=== PATIENT | male | born 1950 ===

== ENCOUNTER → 2016-06-12 | Outpatient (CLI) | payer BC, OTHER ==
--- NOTE | 2016-06-12 15:31 | XR ---
EXAMINATION TYPE: XR chest 2V DATE OF EXAM: 06/12/2016 12:52 PM COMPARISON: Prior chest x-ray 09 November 2014 HISTORY: Asbestos exposure TECHNIQUE: Frontal and lateral views of the chest are obtained. FINDINGS: No interval change is evident. IMPRESSION: No acute cardiopulmonary process.
== END | disposition home or self-care (01) ==
LOC: CPPFTMAIN 11:54
PROVIDERS: ATTEND Family Medicine
DX: Z77.090 Contact with and (suspected) exposure to asbestos (principal)
CPT/HCPCS: 71020; 94060; 94726; 94729

== ENCOUNTER → 2016-06-18 | Outpatient (CLI) | payer BC ==
--- NOTE | 2016-06-18 09:43 | MR ---
EXAMINATION TYPE: MR knee RT wo con DATE OF EXAM: 06/18/2016 9:14 AM COMPARISON: NONE HISTORY: Rt knee pain x 3 weeks TECHNIQUE: Multiplanar, multisequence imaging of the knee is performed without IV contrast. FINDINGS: MEDIAL MENISCUS: Linear tear involving the posterior horn and body of the medial meniscus. LATERAL MENISCUS: Complex tear posterior horn lateral meniscus. CRUCIATE LIGAMENTS: The anterior and posterior cruciate ligaments are intact and unremarkable. COLLATERAL LIGAMENTS: The medial collateral ligament and lateral collateral ligament complex are inta ct and unremarkable. EXTENSOR MECHANISM: Visualized quadriceps and patellar tendons are intact. Signal on T2 sequences wit hin the mid patellar tendon suggestive of tendinitis no evidence of disruption or tear. EFFUSION: Small amount of fluid is seen in the suprapatellar bursa.. POPLITEAL CYST: No popliteal/angulo cyst. TRICOMPARTMENT SPACES: There is narrowing of the medial compartment of the knee joint and patellofemo ral joint. Hypertrophic spurs involving the patella are noted. Findings compatible with osteoarthriti s. Grade III chondromalacia involving the femoral medial and lateral articular cartilage BONE MARROW SIGNAL: No focal abnormal marrow signal is appreciated. Other: There is subcutaneous edema anteriorly with evidence of soft tissue varices. IMPRESSION: 1. Osteoarthritis with small suprapatellar joint effusion and chondromalacia as discussed above 2. Tears involving the posterior horn of the medial and lateral meniscus. 3. No evidence of ligamentous disruption. 4. There is signal seen within the patellar tendon on the T2 sagittal which is suggestive of patellar tendinosis with no evidence of complete tear or disruption correlate clinically.
== END | disposition home or self-care (01) ==
LOC: RADMRIMAIN 08:22
PROVIDERS: ATTEND Orthopaedic Surgery
DX: M17.11 Unilateral primary osteoarthritis, right knee (principal); M94.261 Chondromalacia, right knee; M23.221 Derangement of posterior horn of medial meniscus due to old tear or injury, right knee; M23.251 Derangement of posterior horn of lateral meniscus due to old tear or injury, right knee

== ENCOUNTER 2016-07-13 07:32 | Day surgery (SDC) | payer BC, OTHER ==
[2016-07-10 12:53] VITALS: BMI 40.6
--- NOTE | 2016-07-12 11:07 | HP ---
DATE OF ADMISSION: CHIEF COMPLAINT: Right knee pain. HISTORY OF PRESENT ILLNESS: The patient is a 65-year-old retired gentleman who presents with progressive right knee pain after recent twisting injury. He notes the lateral greater than medial pain along with giving way. He notes he is limping and is limited because of pain. He has tried conservative measures. PAST MEDICAL HISTORY: Significant for type 2 diabetes and hypertension along with prostate cancer. PAST SURGICAL HISTORY: Significant for prostatectomy. CURRENT MEDICATIONS: 1. Doxazosin. 2. Gabapentin. 3. Glimepiride. 4. Lisinopril. 5. Metformin. 6. Naprosyn. 7. Verapamil. He denies drug allergies. Family history is significant for cancer. SOCIAL HISTORY: Negative for current tobacco or alcohol use. Sixteen-point review of systems otherwise reviewed and is noncontributory. On examination, the patient is approximately 6 feet tall, 285 pounds of endomorphic habitus. HEENT exam is nonfocal. Neck is supple. He has painless passive motion of the right hip. Straight leg raise is negative. Active motion of the right knee -6 to 105 degrees of flexion. He has a moderate effusion. He is tender about the lateral joint line. Collaterals are stable, Radha's negative, Daylin's elicits lateral pain. His distal neurovascular exam appears to be intact in the right lower extremity. MRI report for the right knee from 06/18/2016 shows a posterior medial and lateral meniscal tears. IMPRESSION: 1. Right knee internal derangement with symptomatic medial and lateral meniscal tears. 2. Right knee moderate medial compartment osteoarthrosis. 3. Increased body mass index. RECOMMENDATIONS: I talked to the patient at length regarding his treatment options. At this point he is having significant pain and mechanical symptoms despite conservative measures. After thorough discussion, he opts to proceed with surgery. We will plan to proceed with arthroscopic evaluation and possible partial medial and lateral meniscectomies. We will likely perform that as an outpatient procedure.
[~2016-07-13 07:32] MED LIST: DEXAMETHASONE SOD PHOSPHATE 10 MG/ML 1 ML VIAL IV ONE; LACTATED RINGERS 1,000 ML IV SCH; ONDANSETRON 4 MG/2 ML VIAL IVP ONE; ceFAZolin 3 GM in SODIUM CHLORIDE 0.9% 100 ML IVPB ONE
[2016-07-13 08:27] LABS: Glucose,Whole Blood 171 mg/dL (75-99)
[2016-07-13] MEDS ORDERED: LIDOCAINE 1% 20 ML VIAL (10MG/ML) FOR IV START INTRADERMA ONE (08:29)
[2016-07-13] MEDS ORDERED: LIDOCAINE 1% INJ 10MG/ML (20 ML MDV) ONE (09:03)
[2016-07-13] MEDS ORDERED: PROPOFOL 10 MG/ML 20 ML VIAL IV ONE (09:03)
[2016-07-13] MEDS ORDERED: fentaNYL (PF) 50 MCG/ML 2 ML AMP ONE (09:03)
[2016-07-13] MEDS ORDERED: MIDAZOLAM 2 MG/2 ML VIAL ONE (09:03)
[2016-07-13] MEDS ORDERED: EPINEPHrine (PF) 1 ML in SODIUM CHLORIDE 0.9% IRRIGATIO 3,000 ML IRRIGATION ONE ×4 (09:26)
--- NOTE | 2016-07-13 10:03 | P.OP ---
Date of Procedure: 07/13/16 Preoperative Diagnosis: Right knee internal derangement Postoperative Diagnosis: Right knee posterior medial meniscal tear/grade 3 chondral injury distal lateral portion medial femoral condyle/anterior lateral meniscal tear/ patellofemoral plica Procedure(s) Performed: Right knee arthroscopic partial medial meniscectomy/partial lateral meniscectomy /medial femoral chondrectomy/plica resection Implants: Anesthesia: GETA Surgeon: Dax Pan Estimated Blood Loss (ml): 10 Pathology: none sent Condition: stable Disposition: PACU Indications for Procedure: The patient's a 65-year-old male who presents with progressive right knee pain and mechanical symptoms after a recent twisting injury despite conservative measures. A discussion of the risks and benefits of continued conservative treatment versus operative intervention was made with patient. He opted to proceed with surgery. Operative risks to include infection, neurovascular injury, development of blood clots, possible incomplete resolution system, possible worsening symptoms and need for subsequent procedures was discussed. Informed consent was obtained. Operative Findings: As below Description of Procedure: The patient was brought to the operating room, and after induction of general anesthesia examined the right knee. Collaterals were stable, Radha was negative, and posterior drawer was negative. The right lower extremity was prepped and draped in normal fashion. A superior lateral portal was made through a 3 mm skin incision superior and lateral to the patella. This was used for outflow. A moderate effusion was encountered. A lateral portal was made through a 5 mm vertical skin incision lateral to the patella tendon above the joint. Diagnostic arthroscopy was performed. A medial portal was made through a similar incision medial to the patella tendon above the joint line. On inspection of the medial compartment, he was noted to have a longitudinal tear involving the posterior horn of the medial meniscus in the white-white junction. This was debrided back to stable base with straight baskets and a motorized shaver. A grade 3 chondral injury involving the distal lateral portion of the medial femoral condyle was noted. There is a loose chondral fragment debrided back to stable base with a motorized shaver. On inspection the notch, the anterior cruciate ligament appeared to be intact. On inspection lateral compartment there were diffuse degenerative changes along with a complex tear involving the anterior horn of the lateral meniscus. This was debrided back to stable base with a motorized shaver. On inspection patellofemoral articulation, a medial patellofemoral plica was present impinging on the medial femoral condyle. This was debrided with motorized shaver. There was chondral fibrillation however no loose chondral fragments the patellofemoral articulation. The gutters were clear debris. The knee was then thoroughly irrigated. The portals were closed with Steri-Strips. A sterile dressing was applied in addition to a compression stocking. The patient was awoken from general anesthesia and transferred to the recovery room in good condition. Blood loss was estimated at 10 mL. No complications were incurred.
[2016-07-13 10:08] VITALS: TEMP 97.2
[2016-07-13] MEDS: HYDROmorphone 1 MG/ML 1 ML SYRINGE IVP PRN ×2 (10:09→10:19)
[2016-07-13 10:14] LABS: Glucose,Whole Blood 169 mg/dL (75-99)
[2016-07-13 10:46] VITALS: RESP 16
[2016-07-13 11:54] VITALS: BP 141/74; PULSE 67
== END 2016-07-13 12:24 | disposition home or self-care (01) ==
LOC: OR 07:32
PROVIDERS: ATTEND Orthopaedic Surgery
DX: S83.281A Other tear of lateral meniscus, current injury, right knee, initial encounter (principal); S83.241A Other tear of medial meniscus, current injury, right knee, initial encounter; S83.31XA Tear of articular cartilage of right knee, current, initial encounter; M67.51 Plica syndrome, right knee; M17.11 Unilateral primary osteoarthritis, right knee; I10 Essential (primary) hypertension; E11.9 Type 2 diabetes mellitus without complications; X50.1XXA Overexertion from prolonged static or awkward postures, initial encounter; Z79.899 Other long term (current) drug therapy; Z85.46 Personal history of malignant neoplasm of prostate; Z79.84 Long term (current) use of oral hypoglycemic drugs; Z79.1 Long term (current) use of non-steroidal anti-inflammatories (NSAID)
CPT/HCPCS: 29880; J2250; J1100; J0690; J2405; J0171; J2001; J3010; J1170; J2704

== ENCOUNTER → 2017-03-25 | Outpatient (CLI) | payer MEDICARE | END | disposition home or self-care (01) | LOC: LABWHC1 14:17 | PROVIDERS: ATTEND Radiology Radiation Oncology | DX: C61 Malignant neoplasm of prostate (principal) | CPT/HCPCS: 36415; 84153 ==

== ENCOUNTER → 2017-04-10 | Outpatient (CLI) | payer MEDICARE ==
--- NOTE | 2017-04-10 14:35 | NM ---
EXAMINATION TYPE: NM bone scan whole body DATE OF EXAM: 04/10/2017 COMPARISON: Prior exam 11/09/2014 bone scan HISTORY: Prostate cancer, C 62 Delayed whole-body scanning was performed following the injection of 26.1 mCi Tc 99m MDP. Images acq uired 3 hours post injection. FINDINGS: Soft tissue uptake is normal. Uptake again noted within the knees, the, hips, shoulders, sternoclavic ular joints, hands, and spine is likely due to degenerative changes. IMPRESSION: Stable exam, metastatic disease is not evident.
== END | disposition home or self-care (01) ==
LOC: RADNMMAIN 09:14
PROVIDERS: ATTEND Radiology Radiation Oncology
DX: C61 Malignant neoplasm of prostate (principal)
CPT/HCPCS: 78306; A9503

== ENCOUNTER → 2017-05-17 | Outpatient (CLI) | payer MEDICARE ==
--- NOTE | 2017-05-17 09:47 | XR ---
EXAMINATION TYPE: XR chest 2V DATE OF EXAM: 05/17/2017 COMPARISON: 06/12/2016 TECHNIQUE: PA and lateral views submitted. HISTORY: Asbestosis exposure FINDINGS: The lungs are clear and there is no pneumothorax, pleural effusion, or focal pneumonia. Hypertrophi c and degenerative change of the spine. Arthropathy of the shoulders. No overt failure. Atherosclerot ic change aorta. IMPRESSION: 1. No acute process.
== END ==
LOC: RADXRMAIN 09:26
PROVIDERS: ATTEND Family Medicine
DX: Z77.090 Contact with and (suspected) exposure to asbestos (principal)
CPT/HCPCS: 71046

== ENCOUNTER → 2017-05-28 | Outpatient (CLI) | payer OTHER | END | disposition home or self-care (01) | LOC: CPPFTMAIN 10:00 | PROVIDERS: ATTEND Family Medicine | DX: R94.2 Abnormal results of pulmonary function studies (principal); Z77.090 Contact with and (suspected) exposure to asbestos | CPT/HCPCS: 94060; 94726; 94729 ==

== ENCOUNTER → 2017-06-03 | Outpatient (CLI) | payer MEDICARE ==
--- NOTE | 2017-06-03 11:48 | MR ---
EXAMINATION TYPE: MR knee LT wo con DATE OF EXAM: 06/03/2017 COMPARISON: NONE HISTORY: Pain in left knee per order. Additional symptoms of swelling for 3 months per patient. TECHNIQUE: Multiplanar, multisequence images of the knee is performed without IV contrast. FINDINGS: MEDIAL MENISCUS: Anterior horn shows increased globular signal does not distinctly extend to articula r surface. Posterior horn is truncated with abnormal signal. LATERAL MENISCUS: Horizontal increased signal does not extend to articular surface through anterior p osterior horns and central body. CRUCIATE LIGAMENTS: The posterior cruciate ligaments is intact. Anterior cruciate ligament shows suzy ed thickening and increased signal particularly proximal to mid aspects, some fibers remain intact. COLLATERAL LIGAMENTS: The medial collateral ligament and lateral collateral ligament complex are inta ct. Mild fluid signal surrounds medial collateral ligament. EXTENSOR MECHANISM: Visualized quadriceps and patellar tendons are intact. Increased signal and thick ening proximal patellar pole is identified. EFFUSION: There is small size suprapatellar joint effusion. POPLITEAL CYST: No popliteal/angulo cyst. TRICOMPARTMENT SPACES: Moderate to advanced joint space loss medial tibiofemoral and patellofemoral c ompartment is seen. There is moderate to advanced spurring patellofemoral compartment. There is mild to moderate spurring lateral and medial tibiofemoral compartments. CARTILAGE: There is chondromalacia patella with thinning of articular cartilage along posterior russell lar pole. Near full-thickness loss is present. There is full-thickness cartilaginous loss medial tibi ofemoral compartment with near [id number] formation, some reactive osseous changes seen centrally s een best coronal image 21 with areas of low T1 signal noted confirmed on sagittal image 27. BONE MARROW SIGNAL: No focal abnormal marrow signal is appreciated. OTHER: Prominent varicose veins are seen. IMPRESSION: 1. Background moderate to advanced tricompartment degenerative changes most prominent medial tibiofem oral compartment where there is advanced joint space and significant full-thickness cartilaginous los s noted. 2. Complex full-thickness tear posterior horn of medial meniscus may be on basis of degenerative oliveros ge. 3. Degenerative intrasubstance tearing anterior horn of medial meniscus felt present. 4. Markedly abnormal anterior cruciate ligament with heterogeneous increased signal, few normal low s ignal fibers are intact. 5. Mild MCL sprain. 6. Moderate proximal patellar tendinosis.
== END ==
LOC: RADMRIMAIN 09:02
PROVIDERS: ATTEND Family Medicine
DX: M17.12 Unilateral primary osteoarthritis, left knee (principal); S83.242A Other tear of medial meniscus, current injury, left knee, initial encounter; S83.412A Sprain of medial collateral ligament of left knee, initial encounter

== ENCOUNTER → 2017-06-19 | Outpatient (CLI) | payer MEDICARE | END | disposition home or self-care (01) | LOC: LABWHC1 08:45 | PROVIDERS: ATTEND Radiology Radiation Oncology | DX: C61 Malignant neoplasm of prostate (principal) | CPT/HCPCS: 36415; 84153 ==

== ENCOUNTER → 2018-06-09 | Outpatient (CLI) | payer MEDICARE ==
[2018-06-09 11:31] LABS: Appearance,Urine Clear (Clear); Bilirubin,Urine Negative (Negative); Blood,Urine Negative (Negative); Color,Urine Yellow; Glucose,Urine (UA) Negative (Negative); Ketones,Urine Negative (Negative); Leukocyte Esterase,Urine Negative (Negative); Nitrite,Urine Negative (Negative); PH, Urine 5.5 (5.0-8.0); Protein,Urine Trace (Negative); Specific Gravity,Urine 1.027 (1.001-1.035)
== END ==
LOC: LABWHC1 10:34
PROVIDERS: ATTEND Radiology Radiation Oncology
DX: C61 Malignant neoplasm of prostate (principal); R97.21 Rising PSA following treatment for malignant neoplasm of prostate; Z92.3 Personal history of irradiation; Z00.6 Encounter for examination for normal comparison and control in clinical research program; Z90.79 Acquired absence of other genital organ(s)
CPT/HCPCS: 81003; 87086

== ENCOUNTER 2018-06-23 08:31 | Day surgery (SDC) | payer MEDICARE ==
[2018-06-20 09:02] VITALS: BMI 42.0
[~2018-06-23 08:31] MED LIST changes: -DEXAMETHASONE SOD PHOSPHATE 10 MG/ML 1 ML VIAL IV ONE; +LIDOCAINE 1% 20 ML VIAL (10MG/ML) FOR IV START INTRADERMA PRN; -ONDANSETRON 4 MG/2 ML VIAL IVP ONE; -ceFAZolin 3 GM in SODIUM CHLORIDE 0.9% 100 ML IVPB ONE
[2018-06-23 09:15] VITALS: RESP 16; TEMP 97.4
[2018-06-23 09:32] LABS: Glucose,Whole Blood 147 mg/dL (75-99)
[2018-06-23] MEDS ORDERED: PROPOFOL 10 MG/ML 20 ML VIAL IV ONE (10:04)
[2018-06-23] MEDS ORDERED: SODIUM CHLORIDE 0.9% 500 ML IV ONE (10:41)
[2018-06-23 10:49] VITALS: BP 146/79; PULSE 67
--- NOTE | 2018-06-23 11:02 | P.PCN ---
Date of Procedure: 06/23/18 Procedure(s) Performed: Procedure: Colonoscopy and argon plasma coagulation for radiation proctitis. Preoperative diagnosis: Rectal bleeding. Postoperative diagnosis: 1. Sigmoid diverticulosis with no evidence of acute diverticulitis or strictures. 2. Telangiectatic vessels in the rectum consistent with radiation proctitis with evidence of spontaneous bleeding at the time of this exam. 3. Argon plasma coagulation was used with good hemostasis. Preparation: HalfLytely prep. Sedation: Was provided by anesthesia. Brief clinical history: The patient is a 67-year-old male who is scheduled for this evaluation because of 3 episodes of rectal bleeding within the last 3 weeks or so. No change in bowel habits, abdominal pain or rectal pains. His last colonoscopy was in 2009. The patient had prostate cancer for which he underwent radiation last year. Procedure: With the patient on his left lateral decubitus position and after informed consent and adequate sedation, the perianal area was inspected and it did not show any fissures or fistulas. There were no masses felt on digital rectal examination. The Olympus CFH 190L video colonoscope was then inserted in the rectum in the usual fashion and advanced to the cecum. Unfortunately, the preparation was less than ideal and I had to spend some time cleansing the bowel with incomplete cleansing. There was no obvious polyps or tumors. Several diverticular orifices were seen scattered in the sigmoid with no evidence of acute diverticulitis or strictures. In the distal rectum there were multiple telangiectatic vessels consistent with radiation proctitis with one spontaneously bleeding area that was noted upon first inserting the endoscope. Elsewhere, the mucosa appeared healthy. I used argon plasma coagulation energy 60 W. With a straight tip catheter, the involved area was coagulated with good hemostasis. The patient tolerated the procedure well. Plan: The patient was reassured. He will follow up with you as planned and I will be happy to see in the office if his symptoms.
== END 2018-06-23 11:27 | disposition home or self-care (01) ==
LOC: ORWHC2ENDO 08:31
DX: K57.30 Diverticulosis of large intestine without perforation or abscess without bleeding (principal); K62.7 Radiation proctitis; Z85.46 Personal history of malignant neoplasm of prostate; E11.9 Type 2 diabetes mellitus without complications; I10 Essential (primary) hypertension; E78.5 Hyperlipidemia, unspecified; M19.90 Unspecified osteoarthritis, unspecified site; Z79.84 Long term (current) use of oral hypoglycemic drugs; Z79.82 Long term (current) use of aspirin; Z79.899 Other long term (current) drug therapy
CPT/HCPCS: 45382; J2704

== ENCOUNTER 2021-01-21 09:37 | Emergency (ER) | payer MEDICARE ==
[2021-01-21] MEDS ORDERED: IBUPROFEN 600 MG TAB PO STA (11:26)
--- NOTE | 2021-01-21 12:02 | ED ---
General Adult HPI - General Chief complaint: Fever Stated complaint: Covid exposure/symptoms Time Seen by Provider: 01/21/21 11:05 Source: patient, RN notes reviewed Mode of arrival: ambulatory Limitations: no limitations - History of Present Illness Initial comments: 70-year-old male presents to the emergency Department with complaints of cough and fever, onset yesterday. Patient states his is Covid positive and he has been providing her care while attempting to maintain distance. Patient states he attempted to treat his symptoms at home by taking OTC Coricidin last night, but has had nothing today. Reports increased fatigue; states appetite is unchanged. He has mild shortness of breath with activity that he attributes to his cough. Patient states he is not vaccinated, but is interested in receiving the monoclonal antibody infusion. Patient denies dizziness, headache, chest pain, abdominal pain, nausea, vomiting, diarrhea, or dysuria. - Related Data Home Medications Medication Instructions Recorded Confirmed Aspirin 162 mg PO DAILY 07/10/16 01/21/21 Doxazosin [Cardura] 2 mg PO HS 07/10/16 01/21/21 Glimepiride [Amaryl] 4 mg PO DAILY 07/10/16 01/21/21 Lisinopril-Hctz 20-25 mg 1 tab PO DAILY 07/10/16 01/21/21 [Zestoretic 20-25] Naproxen [Naprosyn] 500 mg PO BID 07/10/16 01/21/21 Red Yeast Rice 1,200 mg PO HS 07/10/16 01/21/21 metFORMIN HCL [Metformin HCl] 1,000 mg PO BID 07/10/16 01/21/21 Loratadine 10 mg PO DAILY 06/20/18 01/21/21 Multivitamin-No Iron 1 tab PO DAILY 01/21/21 01/21/21 Pioglitazone [Actos] 45 mg PO DAILY 01/21/21 01/21/21 Verapamil HCl [Verapamil Sr] 360 mg PO DAILY 01/21/21 01/21/21 Allergies Allergy/AdvReac Type Severity Reaction Status Date / Time No Known Allergies Allergy Verified 01/21/21 13:47 Review of Systems ROS Statement: Those systems with pertinent positive or pertinent negative responses have been documented in the HPI. ROS Other: All systems not noted in ROS Statement are negative. Past Medical History Past Medical History: Cancer, Diabetes Mellitus, Hyperlipidemia, Hypertension, Osteoarthritis (OA), Prostate Disorder Additional Past Medical History / Comment(s): SOME RECTAL BLEEDING,PROSTATE CANCER WITH RADIATION History of Any Multi-Drug Resistant Organisms: None Reported Past Surgical History: Tonsillectomy Additional Past Surgical History / Comment(s): RIGHT AND LEFT GREAT TOE , PROSTATE SURGERY, RIGHT AND LEFT ARTHROSCOPIC KNEE Past Anesthesia/Blood Transfusion Reactions: Previous Problems w/ Anesthesia Additional Past Anesthesia/Blood Transfusion Reaction / Comment(s): PATIENT STATES WOKE UP DURING HIS TOE SURGERY " Past Psychological History: No Psychological Hx Reported Smoking Status: Never smoker Past Alcohol Use History: Rare Past Drug Use History: None Reported - Past Family History Father Family Medical History: Cancer Additional Family Medical History / Comment(s): LUNG AND BRAIN CANCER General Exam Limitations: no limitations (Well-developed, well-nourished male in no acute distress. Initial temperature 99.7, pulse 87, respirations 18, blood pressure 216/88, pulse ox 94% on room air.) General appearance: alert, in no apparent distress Eye exam: Present: normal appearance, PERRL, EOMI. Absent: scleral icterus, conjunctival injection, periorbital swelling ENT exam: Present: normal exam, normal oropharynx, mucous membranes moist Respiratory exam: Present: normal lung sounds bilaterally, other (Dry cough). Absent: respiratory distress, wheezes, rales, rhonchi, stridor Cardiovascular Exam: Present: regular rate, normal rhythm, normal heart sounds. Absent: systolic murmur, diastolic murmur, rubs, gallop, clicks GI/Abdominal exam: Present: soft, normal bowel sounds. Absent: distended, tenderness, guarding, rebound, rigid Neurological exam: Present: alert, oriented X3, CN II-XII intact Psychiatric exam: Present: normal affect, normal mood Skin exam: Present: warm, dry, intact, normal color. Absent: rash Course Vital Signs 01/21/21 01/21/21 01/21/21 09:38 12:31 13:04 Temperature 99.7 F H 100.2 F H Pulse Rate 87 82 82 Respiratory 18 16 16 Rate Blood Pressure 216/88 164/72 174/77 O2 Sat by Pulse 94 L 92 L 94 L Oximetry 01/21/21 14:05 Temperature 98.7 F Pulse Rate 80 Respiratory 16 Rate Blood Pressure 161/71 O2 Sat by Pulse 92 L Oximetry - Reevaluation(s) Reevaluation #1: 01/21/21 13:00 Discussed elevated blood pressure; states he is due for his morning medications and will take them when he gets home. 01/21/21 13:52 Tolerated antibiotic infusion without adverse effect. Medical Decision Making - Medical Decision Making This is a 70-year-old male with past medical history of diabetes and hypertension who presents to the emergency department for evaluation of fever and cough. Patient had direct contact with COVID-19 positive individual. Upon exam, patient is well-appearing with no increased work of breathing or evidence of distress. He is febrile, but not tachycardic nor tachypneic. SpO2 93-96% on room air. Patient did test positive for Covid. Discussed option of monoclonal antibody infusion and patient was agreeable. He received infusion without any adverse side effect. Patient will be discharged home to follow up with his primary care provider for recheck. Instructed to alternate Tylenol and Motrin as needed for fever. Return parameters were discussed in detail. Patient verbalizes understanding and agrees with this plan. This patient's care was discussed my attending . - Lab Data Lab Results 01/21/21 Range/Units 09:44 Coronavirus (PCR) Detected A (Not Detectd) - Radiology Data Radiology results: report reviewed, image reviewed Two-view chest x-ray was obtained. Report was reviewed in its entirety. Impression per Dr. Wilson is possible basilar atelectasis, correlate to exclude pneumonia, follow-up is indicated. Disposition Clinical Impression: COVID-19, Fever Disposition: HOME SELF-CARE Condition: Stable Instructions (If sedation given, give patient instructions): Coronavirus Disease 2019 (COVID-19), Fever in Adults (ED) Additional Instructions: Treat fever with Tylenol or Motrin. Continue taking your regular home medications as scheduled. Follow-up with your primary care provider for a recheck via telephone. Return to the emergency department with new, worsening, or concerning symptoms. Is patient prescribed a controlled substance at d/c from ED?: No Referrals: Pascale Kaminski DO [Primary Care Provider] - 1-2 days Time of Disposition: 14:17
--- NOTE | 2021-01-21 12:19 | XR ---
EXAMINATION TYPE: XR chest 2V DATE OF EXAM: 01/21/2021 COMPARISON: Chest x-ray 05/17/2017 HISTORY: Cough, Covid TECHNIQUE: Frontal and lateral views of the chest are obtained. FINDINGS: There is no pleural effusion or pneumothorax seen. Suspect some increased attenuation at the posterior costophrenic angle The cardiac silhouette size is within normal limits. The osseous s tructures are intact, there is thoracic spondylosis. IMPRESSION: Possible basilar atelectasis, correlate to exclude pneumonia, follow-up as indicated
[2021-01-21] MEDS ORDERED: SODIUM CHLORIDE 0.9% 50 ML IVPB ONE (12:30)
[2021-01-21] MEDS ORDERED: BAMLANIVIMAB (EUA) 700 MG, ETESEVIMAB (EUA) 1,400 MG in SODIUM CHLORIDE 0.9% 50 ML IVPB ONE (12:30)
[2021-01-21 12:33] VITALS: RESP 16
[2021-01-21 14:07] VITALS: BP 161/71; PULSE 80; TEMP 98.7
== END 2021-01-21 14:45 | disposition home or self-care (01) ==
LOC: EC 09:37
DX: U07.1 COVID-19 (principal); E11.9 Type 2 diabetes mellitus without complications; I10 Essential (primary) hypertension; E78.5 Hyperlipidemia, unspecified; M19.90 Unspecified osteoarthritis, unspecified site; Z79.84 Long term (current) use of oral hypoglycemic drugs; Z79.82 Long term (current) use of aspirin; Z79.1 Long term (current) use of non-steroidal anti-inflammatories (NSAID); Z79.899 Other long term (current) drug therapy
CPT/HCPCS: 87635; 71046; 99284; J3490

== ENCOUNTER 2021-01-23 12:51 | Inpatient (IN) | payer MEDICARE ==
[2021-01-23] MEDS ORDERED: ALBUTEROL HFA INHALER INHALATION STA (13:35)
--- NOTE | 2021-01-23 13:37 | ED ---
SOB HPI - General Chief Complaint: Shortness of Breath Stated Complaint: weakness Time Seen by Provider: 01/23/21 13:14 Source: patient, RN notes reviewed Mode of arrival: wheelchair Limitations: no limitations - History of Present Illness Initial Comments: Is a 70-year-old male with no prior history of lung disease who started developing symptoms 4 days ago of cough fevers chills sweats. 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 He was seen today and found to be hypoxemic short of breath though he states his temperature was better today. No nausea no vomiting no diarrhea no chest pain no other current complaints modifying factors. He is found to have a pulse ox of the 70s. MD Complaint: shortness of breath - Related Data Home Medications Medication Instructions Recorded Confirmed Aspirin 162 mg PO DAILY 07/10/16 01/21/21 Doxazosin [Cardura] 2 mg PO HS 07/10/16 01/21/21 Glimepiride [Amaryl] 4 mg PO DAILY 07/10/16 01/21/21 Lisinopril-Hctz 20-25 mg 1 tab PO DAILY 07/10/16 01/21/21 [Zestoretic 20-25] Naproxen [Naprosyn] 500 mg PO BID 07/10/16 01/21/21 Red Yeast Rice 1,200 mg PO HS 07/10/16 01/21/21 metFORMIN HCL [Metformin HCl] 1,000 mg PO BID 07/10/16 01/21/21 Loratadine 10 mg PO DAILY 06/20/18 01/21/21 Multivitamin-No Iron 1 tab PO DAILY 01/21/21 01/21/21 Pioglitazone [Actos] 45 mg PO DAILY 01/21/21 01/21/21 Verapamil HCl [Verapamil Sr] 360 mg PO DAILY 01/21/21 01/21/21 Allergies Allergy/AdvReac Type Severity Reaction Status Date / Time No Known Allergies Allergy Verified 01/23/21 13:06 Review of Systems ROS Statement: Those systems with pertinent positive or pertinent negative responses have been documented in the HPI. ROS Other: All systems not noted in ROS Statement are negative. Past Medical History Past Medical History: Cancer, Diabetes Mellitus, Hyperlipidemia, Hypertension, Osteoarthritis (OA), Prostate Disorder Additional Past Medical History / Comment(s): SOME RECTAL BLEEDING,PROSTATE CANCER WITH RADIATION History of Any Multi-Drug Resistant Organisms: None Reported Past Surgical History: Tonsillectomy Additional Past Surgical History / Comment(s): RIGHT AND LEFT GREAT TOE , PROSTATE SURGERY, RIGHT AND LEFT ARTHROSCOPIC KNEE Past Anesthesia/Blood Transfusion Reactions: Previous Problems w/ Anesthesia Additional Past Anesthesia/Blood Transfusion Reaction / Comment(s): PATIENT STATES WOKE UP DURING HIS TOE SURGERY " Past Psychological History: No Psychological Hx Reported Smoking Status: Never smoker Past Alcohol Use History: Rare Past Drug Use History: None Reported - Past Family History Father Family Medical History: Cancer Additional Family Medical History / Comment(s): LUNG AND BRAIN CANCER General Exam - General Exam Comments Initial Comments: This is a well-developed well-nourished awake alert oriented times 3 male Limitations: no limitations General appearance: alert, anxious Head exam: Present: atraumatic, normocephalic, normal inspection Eye exam: Present: normal appearance, PERRL, EOMI. Absent: scleral icterus, conjunctival injection, periorbital swelling ENT exam: Present: normal exam, mucous membranes moist Neck exam: Present: normal inspection, full ROM, other. Absent: tenderness, meningismus, lymphadenopathy Respiratory exam: Present: rhonchi, decreased breath sounds (No stridor JVD or bruits). Absent: respiratory distress, wheezes, rales, stridor Cardiovascular Exam: Present: regular rate, normal rhythm, normal heart sounds. Absent: systolic murmur, diastolic murmur, rubs, gallop, clicks GI/Abdominal exam: Present: soft, normal bowel sounds. Absent: distended, tenderness, guarding, rebound, rigid Extremities exam: Present: normal inspection, full ROM, normal capillary refill. Absent: tenderness, pedal edema, joint swelling, calf tenderness Back exam: Present: normal inspection Neurological exam: Present: alert, oriented X3, CN II-XII intact Psychiatric exam: Present: normal affect, normal mood Skin exam: Present: warm, dry, intact, normal color. Absent: rash Course Vital Signs 01/23/21 01/23/21 01/23/21 13:02 13:35 13:57 Temperature 99.4 F Pulse Rate 70 58 L Respiratory 18 28 H 18 Rate Blood Pressure 147/69 137/71 O2 Sat by Pulse 85 L 98 Oximetry 01/23/21 01/23/21 14:05 15:00 Temperature Pulse Rate 58 L Respiratory 18 Rate Blood Pressure 146/65 O2 Sat by Pulse 97 95 Oximetry - Reevaluation(s) Reevaluation #1: 01/23/21 15:57 Patient has improvement after the treatment rendered. Reevaluation #2: 01/23/21 16:06 Dr. Melo did come to see the patient in the emergency department. Medical Decision Making - Medical Decision Making I did discuss findings the patient with Dr. kofi tinajero he does have evidence of hypokalemia hypomagnesemia is 5 taking magnesium supplements. Evidence of lactic acidosis likely a combination of the viral syndrome and dehydration. Patient will be admitted for inpatient evaluation and treatment - Lab Data Result diagrams: 01/23/21 13:35 01/23/21 13:35 Lab Results 01/23/21 01/23/21 01/23/21 Range/Units 13:35 13:35 13:35 WBC 4.1 (3.8-10.6) k/uL RBC 4.09 L (4.30-5.90) m/uL Hgb 12.9 L (13.0-17.5) gm/dL Hct 37.1 L (39.0-53.0) % MCV 90.9 (80.0-100.0) fL MCH 31.6 (25.0-35.0) pg MCHC 34.8 (31.0-37.0) g/dL RDW 12.9 (11.5-15.5) % Plt Count 149 L (150-450) k/uL MPV 8.0 Neutrophils % 83 % Lymphocytes % 11 % Monocytes % 5 % Eosinophils % 0 % Basophils % 0 % Neutrophils # 3.4 (1.3-7.7) k/uL Lymphocytes # 0.5 L (1.0-4.8) k/uL Monocytes # 0.2 (0-1.0) k/uL Eosinophils # 0.0 (0-0.7) k/uL Basophils # 0.0 (0-0.2) k/uL D-Dimer 0.80 H (<0.60) mg/L FEU Sodium 137 (137-145) mmol/L Potassium 3.1 L (3.5-5.1) mmol/L Chloride 101 (98-107) mmol/L Carbon Dioxide 23 (22-30) mmol/L Anion Gap 13 mmol/L BUN 22 H (9-20) mg/dL Creatinine 0.76 (0.66-1.25) mg/dL Est GFR (CKD-EPI)AfAm >90 (>60 ml/min/1.73 sqM) Est GFR (CKD-EPI)NonAf >90 (>60 ml/min/1.73 sqM) Glucose 213 H (74-99) mg/dL Plasma Lactic Acid Liban (0.7-2.0) mmol/L Calcium 8.3 L (8.4-10.2) mg/dL Magnesium 1.5 L (1.6-2.3) mg/dL Total Bilirubin 0.4 (0.2-1.3) mg/dL AST 53 (17-59) U/L ALT 20 (4-49) U/L Alkaline Phosphatase 48 (38-126) U/L Creatine Kinase 182 H (55-170) U/L Total Creatine Kinase (55-170) U/L CK-MB (CK-2) (0.0-2.4) ng/mL CK-MB (CK-2) Rel Index Troponin I (0.000-0.034) ng/mL Total Protein 6.0 L (6.3-8.2) g/dL Albumin 3.4 L (3.5-5.0) g/dL Influenza Type A (PCR) (Not Detectd) Influenza Type B (PCR) (Not Detectd) RSV (PCR) (Not Detectd) SARS-CoV-2 (PCR) (Not Detectd) 01/23/21 01/23/21 01/23/21 Range/Units 13:35 13:35 13:35 WBC (3.8-10.6) k/uL RBC (4.30-5.90) m/uL Hgb (13.0-17.5) gm/dL Hct (39.0-53.0) % MCV (80.0-100.0) fL MCH (25.0-35.0) pg MCHC (31.0-37.0) g/dL RDW (11.5-15.5) % Plt Count (150-450) k/uL MPV Neutrophils % % Lymphocytes % % Monocytes % % Eosinophils % % Basophils % % Neutrophils # (1.3-7.7) k/uL Lymphocytes # (1.0-4.8) k/uL Monocytes # (0-1.0) k/uL Eosinophils # (0-0.7) k/uL Basophils # (0-0.2) k/uL D-Dimer (<0.60) mg/L FEU Sodium (137-145) mmol/L Potassium (3.5-5.1) mmol/L Chloride (98-107) mmol/L Carbon Dioxide (22-30) mmol/L Anion Gap mmol/L BUN (9-20) mg/dL Creatinine (0.66-1.25) mg/dL Est GFR (CKD-EPI)AfAm (>60 ml/min/1.73 sqM) Est GFR (CKD-EPI)NonAf (>60 ml/min/1.73 sqM) Glucose (74-99) mg/dL Plasma Lactic Acid Liban 3.6 H* (0.7-2.0) mmol/L Calcium (8.4-10.2) mg/dL Magnesium (1.6-2.3) mg/dL Total Bilirubin (0.2-1.3) mg/dL AST (17-59) U/L ALT (4-49) U/L Alkaline Phosphatase (38-126) U/L Creatine Kinase (55-170) U/L Total Creatine Kinase 182 H (55-170) U/L CK-MB (CK-2) 1.0 (0.0-2.4) ng/mL CK-MB (CK-2) Rel Index 0.5 Troponin I 0.023 (0.000-0.034) ng/mL Total Protein (6.3-8.2) g/dL Albumin (3.5-5.0) g/dL Influenza Type A (PCR) Not Detected (Not Detectd) Influenza Type B (PCR) Not Detected (Not Detectd) RSV (PCR) Not Detected (Not Detectd) SARS-CoV-2 (PCR) Detected A (Not Detectd) - EKG Data -: EKG Interpreted by Ne EKG shows normal: sinus rhythm EKG Comments: Sinus rhythm a 67 GA interval 296 QRS 154 QT since QTC 438/462 or 3 AV block left exodeviation right bundle-branch block pattern - Radiology Data Radiology results: report reviewed (Imaging shows evidence of infiltrate consistent with Coban pneumonia no PE seen. Lymphadenopathy noted please see complete report), image reviewed Critical Care Time Critical Care Time: Yes Total Critical Care Time: 32 Critical Care Time: Critical care time includes initial presentation with history physical labs x- rays multiple re-evaluations patient discussion with the admitting physician admission orders neck mentation the above Disposition Clinical Impression: Pneumonia due to COVID-19 virus, Hypoxemia, Dehydration, Hypokalemia, Hypomagnesemia syndrome, Febrile illness, acute, D-dimer, elevated Disposition: ADMITTED IP TO THIS HOSP Referrals: Pascale Kaminski DO [Primary Care Provider] - 1-2 days
[2021-01-23 13:48] LABS: Basophils % (A) 0 %; Eosinophils % (A) 0 %; HCT 37.1 % (39.0-53.0); HGB 12.9 gm/dL (13.0-17.5); Lymphocytes # (A) 0.5 k/uL (1.0-4.8); Lymphocytes % (A) 11 %; MCH 31.6 pg (25.0-35.0); MCHC 34.8 g/dL (31.0-37.0); MCV 90.9 fL (80.0-100.0); Monocytes # (A) 0.2 k/uL (0-1.0); Monocytes % (A) 5 %; Neutrophils # (A) 3.4 k/uL (1.3-7.7); Neutrophils % (A) 83 %; Platelet Count 149 k/uL (150-450); RBC 4.09 m/uL (4.30-5.90); RDW 12.9 % (11.5-15.5); WBC 4.1 k/uL (3.8-10.6)
--- NOTE | 2021-01-23 13:48 | XR ---
EXAMINATION TYPE: XR chest 2V DATE OF EXAM: 01/23/2021 COMPARISON: Chest x-ray 01/21/2021 HISTORY: Covid positive, dyspnea TECHNIQUE: Frontal and lateral views of the chest are obtained. FINDINGS: Patchy bilateral airspace disease has developed in the lungs. No evident pneumothorax or p leural effusion. Cardiac mediastinal silhouette is stable. There are overlying artifacts. IMPRESSION: Findings consistent with possible Covid pneumonia.
[2021-01-23 14:01] LABS: ALT 20 U/L (4-49); AST 53 U/L (17-59); African American GFR (CKD) >90 (>60 ml/min/1.73 sqM); Albumin 3.4 g/dL (3.5-5.0); Alkaline Phosphatase 48 U/L (38-126); Anion Gap 13 mmol/L; Blood Urea Nitrogen 22 mg/dL (9-20); Calcium 8.3 mg/dL (8.4-10.2); Carbon Dioxide 23 mmol/L (22-30); Chloride 101 mmol/L (98-107); Creatine Kinase 182 U/L (55-170); Glucose 213 mg/dL (74-99); Magnesium 1.5 mg/dL (1.6-2.3); Non-African American GFR(CKD) >90 (>60 ml/min/1.73 sqM); Potassium 3.1 mmol/L (3.5-5.1); Sodium 137 mmol/L (137-145); Total Bilirubin 0.4 mg/dL (0.2-1.3)
[2021-01-23 14:18] LABS: Troponin I 0.023 ng/mL (0.000-0.034)
[2021-01-23] MEDS ORDERED: SODIUM CHLORIDE 0.9% 1,000 ML IV STA ×3 (14:35→16:05)
--- NOTE | 2021-01-23 15:38 | CT ---
EXAMINATION TYPE: CT angio chest DATE OF EXAM: 01/23/2021 COMPARISON: None HISTORY: 70-year-old male Shortness of breath, covid and antibody treatment. TECHNIQUE: Contiguous axial scanning of the chest performed with IV Contrast, patient injected with 1 00 mL of Isovue 370. Coronal/sagittal MIP reconstructions performed. CT DLP: 711.2 mGycm Automated exposure control for dose reduction was used. FINDINGS: Heart upper limits of normal in size without pericardial effusion. No reflux of contrast into the hep atic veins. LAD coronary artery calcifications are present. Aorta normal caliber with conventional arch vessel branching anatomy. 1 cm lower right paratracheal lymph node. Right hilar lymph nodes measuring up to 1.5 cm. These are probably reactive. Satisfactory opacification of the pulmonary arterial system but with patient breathing artifact. Allo wing for this limitation no definite pulmonary embolus to the proximal segmental branch level. More d istal arterial branches are very limited and nondiagnostic due to heterogeneity from breathing motion artifact. Patchy and confluent bilateral diffuse groundglass opacities. 5 mm right mid lung pulmonary nodule, axial image 84 should be reassessed in 6 months. No pleural eff usion. Small hilar hernia. Visualized upper abdomen otherwise shows no os acromiale. Bones: DISH within the mid and lower thoracic spine. Degenerative changes right glenohumeral joint. IMPRESSION: 1. Breathing motion artifact. No definite pulmonary embolus down to the proximal segmental branch lev el. More distal arterial branches are limited to nondiagnostic due to the breathing artifact. 2. Bilateral groundglass COVID pneumonia. 3. Right hilar lymphadenopathy measuring up to 1.5 cm, likely reactive. Reassess in 6 months. 4. A 5 mm right mid lung pulmonary nodule should also be reassessed at the 6 month follow-up.
[2021-01-23] MEDS ORDERED: POTASSIUM CHLORIDE ER 20 MEQ TAB.ER PO STA (16:05)
[2021-01-23] MEDS ORDERED: NALOXONE 0.4 MG/ML 1 ML VIAL IV PRN (16:06)
[2021-01-23] MEDS ORDERED: ACETAMINOPHEN TAB 325 MG TAB PO PRN (16:06)
[2021-01-23] MEDS ORDERED: Potassium Replacement Protocol 1 EACH MISC MISCELLANE PRN (16:59)
[2021-01-23] MEDS ORDERED: Magnesium Replacement Protocol 1 EACH MISC MISCELLANE PRN (16:59)
--- NOTE | 2021-01-23 17:38 | HP ---
HISTORY AND PHYSICAL DATE OF SERVICE: 01/23/2021 CHIEF COMPLAINTS: Shortness of breath and hypoxia. HISTORY OF PRESENT ILLNESS: This 70-year-old gentleman with a past medical history of diabetes mellitus, hypertension, hyperlipidemia, history of DJD, being followed by Dr. Kaminski in the outpatient setting, had some shortness of breath and cough and other symptoms for the last 4 days. The patient also had fever and chills. The patient came on Saturday to the ER and the patient received antibody infusion. Patient went home and the patient was having progressive shortness of breath and a pulse ox of around 60% on room air. The patient was taken to [facility] and admitted for further evaluation and treatment. On admission, the patient was found to have white count of 4.1, sodium 137, potassium 3.1, and lactic acid was found to be 3.6. COVID-19 was positive. Influenza was negative. Chest CTA was done which showed no significant evidence of pulmonary embolism, but bilateral ground-glass appearance of COVID-19 pneumonia, right hilar adenopathy 1.6 cm, possibly reactive. There is no history of any fever, rigor or chills at this time. Patient at this time. Pulmonary and infectious disease evaluations have also been sought. PAST MEDICAL HISTORY: History of diabetes mellitus, type 2, hypertension, hyperlipidemia, history of DJD, history of prostate disorder. HOME MEDICATIONS: Zinc, vitamin D3,, red yeast rice, vitamin C, metformin, Actos, Naprosyn, lisinopril, Amaryl, Cardura, multivitamins. Doses are reviewed. ALLERGIES: NONE. FAMILY HISTORY: History of lung and brain cancer. SOCIAL HISTORY: Previous history of smoking. No history of alcohol intake. REVIEW OF SYSTEMS: ENT: No diminished hearing. No diminished vision. CARDIOVASCULAR SYSTEM: As mentioned earlier. RESPIRATORY SYSTEM: As mentioned earlier. GI: No nausea, vomiting, diarrhea. : No dysuria. NERVOUS SYSTEM: No numbness, weakness. ALLERGY/IMMUNOLOGY: No asthma or hay fever. MUSCULOSKELETAL: As mentioned earlier. HEMATOLOGY/ONCOLOGY: No history of anemia. ENDOCRINE: As mentioned earlier. CONSTITUTIONAL: As mentioned earlier. DERMATOLOGY: Negative. RHEUMATOLOGY: Negative. PSYCHIATRY: As mentioned earlier. PHYSICAL EXAMINATION: Patient is alert, oriented x3. Pulse is 58, blood pressure 137/71, respiration 18, temperature 99.4, pulse ox 98% on 15 L high-flow nasal cannula. HEENT: Conjunctivae normal. Oral mucosa moist. NECK: No jugular venous distention. CARDIOVASCULAR: S1, S2 muffled. RESPIRATION: Breath sounds diminished at the bases. A few scattered rhonchi and crackles. ABDOMEN: Soft, obese, non-tender. No mass palpable. LEGS: No edema. No swelling. NERVOUS SYSTEM: Higher functions as mentioned earlier. Moves all 4 limbs. No focal motor or sensory deficit. LYMPHATICS: No lymph node palpable in neck, axillae or groin. SKIN: No ulcer, rash, bleeding. JOINTS: No active deforming arthropathy. LABS: Labs at this time show WBC 12.4, hemoglobin 12.9, and D-dimer 0.8. Sodium is 137, potassium 3.1. ASSESSMENT: 1. Acute COVID-19 infection with acute COVID-19 bilateral interstitial pneumonia with acute hypoxic respiratory failure, on high-flow oxygen. 2. Elevated D-dimer without any evidence of acute pulmonary embolism. 3. Right hilar adenopathy, possibly reactive. 4. Hypokalemia, severe. 5. Elevated lactic acid, possibly secondary to dehydration and COVID-19 pneumonia. 6. Hypomagnesemia. 7. Elevated creatine kinase with possible acute mild rhabdomyolysis. 8. Anemia. 9. Mild thrombocytopenia. 10.Lymphopenia. 11.Morbid obesity with body mass index of 40.7. 12.Diabetes mellitus, type 2. 13.Hypertension. 14.Hyperlipidemia. 15.History of degenerative joint disease. 16.History of prostate disorder. 17.History of rectal bleeding. 18.History of prostate cancer with radiation. 19.Remote history of nicotine dependence. 20.FULL CODE. RECOMMENDATIONS AND DISCUSSION: In this 70-year-old gentleman who presented with multiple complex medical issues, we will continue the current medications, continue with symptomatic treatment. The patient has received BAM as an outpatient. I would think possibly the patient is a candidate for Remdesivir. Consult Infectious Disease and Pulmonary. Continue with the usual medications for COVID-19, including Lovenox and dexamethasone. Ensure oxygenation. The prognosis is guarded because of multiple complex medical issues. Further recommendations to follow. A copy of this dictation is being forwarded to Dr. Kaminski, who is the primary physician. MMODL / IJN: [id number] / [facility]
[2021-01-23] MEDS: ALBUTEROL HFA INHALER INHALATION SCH ×2 (19:45→19:47)
[2021-01-23] MEDS: MAGNESIUM SULFATE-D5W PMX 1 GM in DEXTROSE/WATER 1 100ML.BAG IVPB SCH ×2 (19:57→21:03)
[2021-01-23] MEDS: dexAMETHasone 2 MG TAB PO SCH (19:58)
[2021-01-23] MEDS: CHOLECALCIFEROL 25 MCG (1000 IU) TABLET PO SCH (19:58)
[2021-01-23] MEDS: PANTOPRAZOLE 40 MG TABLET PO SCH (19:58)
[2021-01-23] MEDS: ENOXAPARIN 40 MG/0.4 ML SYRINGE SQ SCH (19:58)
[2021-01-23] MEDS: ASCORBIC ACID 500 MG TAB PO SCH (19:58)
[2021-01-23] MEDS: DOXAZOSIN 2 MG TAB PO SCH (20:26)
[2021-01-23 21:04] LABS: Glucose,Whole Blood 255 mg/dL (75-99)
[2021-01-23] MEDS: INSULIN ASPART (NovoLOG) 100 UNIT/ML VIAL SQ SCH ×2 (21:06→21:07)
[2021-01-23] MEDS: ZINC SULFATE 220 MG CAP PO SCH (21:13)
[2021-01-24 06:09] LABS: Glucose,Whole Blood 222 mg/dL (75-99)
[2021-01-24 06:33] LABS: Basophils % (A) 0 %; Eosinophils % (A) 0 %; HCT 39.8 % (39.0-53.0); HGB 13.5 gm/dL (13.0-17.5); Lymphocytes # (A) 0.5 k/uL (1.0-4.8); Lymphocytes % (A) 9 %; MCH 31.1 pg (25.0-35.0); MCV 91.3 fL (80.0-100.0); Monocytes # (A) 0.2 k/uL (0-1.0); Monocytes % (A) 4 %; Neutrophils # (A) 4.5 k/uL (1.3-7.7); Neutrophils % (A) 87 %; Platelet Count 153 k/uL (150-450); RBC 4.36 m/uL (4.30-5.90); RDW 12.4 % (11.5-15.5); WBC 5.2 k/uL (3.8-10.6)
[2021-01-24] MEDS: INSULIN ASPART (NovoLOG) 100 UNIT/ML VIAL SQ SCH ×4 (06:47→20:49)
[2021-01-24] MEDS: GLIMEPIRIDE 4 MG TAB PO SCH (06:47)
[2021-01-24] MEDS: PANTOPRAZOLE 40 MG TABLET PO SCH (06:47)
[2021-01-24 06:58] LABS: African American GFR (CKD) >90 (>60 ml/min/1.73 sqM); Anion Gap 7 mmol/L; Blood Urea Nitrogen 18 mg/dL (9-20); Calcium 8.2 mg/dL (8.4-10.2); Carbon Dioxide 29 mmol/L (22-30); Chloride 102 mmol/L (98-107); Glucose 226 mg/dL (74-99); Magnesium 1.8 mg/dL (1.6-2.3); Non-African American GFR(CKD) >90 (>60 ml/min/1.73 sqM); Potassium 3.8 mmol/L (3.5-5.1); Sodium 138 mmol/L (137-145)
[2021-01-24] MEDS: dexAMETHasone 2 MG TAB PO SCH (08:48)
[2021-01-24] MEDS: CHOLECALCIFEROL 25 MCG (1000 IU) TABLET PO SCH (08:49)
[2021-01-24] MEDS: ZINC SULFATE 220 MG CAP PO SCH (08:49)
[2021-01-24] MEDS: ENOXAPARIN 40 MG/0.4 ML SYRINGE SQ SCH (08:49)
[2021-01-24] MEDS: ASCORBIC ACID 500 MG TAB PO SCH (08:49)
[2021-01-24] MEDS ORDERED: LISINOPRIL-HCTZ 20-25 MG 1 EACH TAB PO SCH (09:00)
[2021-01-24] MEDS ORDERED: VERAPAMIL SR 180 MG TABLET.ER PO SCH (09:00)
[2021-01-24] MEDS ORDERED: LORATADINE 10 MG TAB PO SCH (09:00)
[2021-01-24] MEDS ORDERED: PIOGLITAZONE 45 MG TAB PO SCH (09:00)
[2021-01-24] MEDS ORDERED: [UNRECOGNIZED DRUG - REMARK] PO SCH (09:00)
[2021-01-24] MEDS: ALBUTEROL HFA INHALER INHALATION SCH ×4 (09:39→19:46)
[2021-01-24 11:44] LABS: Glucose,Whole Blood 247 mg/dL (75-99)
[2021-01-24] MEDS ORDERED: MULTIVITAMINS, THERA 1 EACH TAB PO SCH (12:00)
[2021-01-24 13:44] LABS: Partial Thromboplastin Time 32.2 sec (22.0-30.0); Prothrombin Time 10.5 sec (9.0-12.0)
[2021-01-24] MEDS ORDERED: BARICITINIB 2 MG TABLET PO SCH (14:00)
--- NOTE | 2021-01-24 14:32 | P.CNPUL ---
History of Present Illness Consult date: 01/24/21 Requesting physician: Brandon E Dede Reason for consult: dyspnea, cough, hypoxemia, pneumonia, abnormal CXR/CT Chief complaint: Shortness of breath. History of present illness: Pulmonary consult dated 01/24/2021. 70-year-old male, seen in room 377. This is a new consult for our team. The patient apparently initially presented to the emergency department, on January 23, complaining of shortness of breath. The patient has been sick since January 20. The patient apparently tested positive for coronavirus on January 21. Currently, the patient complains of coughing up blood, diarrhea, shortness of breath, cough, fever, chills, and weakness. Unfortunately, he is on vaccinated. His primary care physician is Dr. Pascale Kaminski. Currently, the patient's on 15 L high flow nasal O2, along with a nonrebreather mask. He is also getting saline at 130 mL an hour. I recall the pharmacy about getting the patient started on ERROL. His other medication should include Decadron, Lovenox, and typical vitamins. The patient has a history of diabetes, hyperlipidemia, hypertension, prostate cancer, osteoarthritis, and rectal bleeding. He also has significant obesity. CBC is completely normal. PTT is 32.2, sodium 138, potassium 3.8, chlorides 102, CO2 29, anion gap 7, BUN 18, and creatinine 0.6. Calcium 8.2. D-dimer on the , was 0.8. Coronavirus testing here was positive. Chest x-ray shows diffuse bilateral infiltrates. The CT angiogram did not reveal a pulmonary embolism. There were groundglass opacities consistent with coronavirus associated pneumonia. Review of Systems REVIEW OF SYSTEMS: CONSTITUTIONAL: Weakness and fatigue. NEUROLOGIC: [ Negative.] HEENT: [ Negative.] CARDIAC: [Negative.] PULMONARY: Shortness of breath, chest congestion, and cough. In addition, the patient complained of coughing up of blood. GI: Diarrhea. : [Negative.] RHEUMATOLOGIC: [ Negative.] IMMUNOLOGIC: [ Negative.] ENDOCRINE: [Negative. ] DERMATOLOGIC: [Negative.] Past Medical History Past Medical History: Cancer, Diabetes Mellitus, Hyperlipidemia, Hypertension, Osteoarthritis (OA), Prostate Disorder Additional Past Medical History / Comment(s): SOME RECTAL BLEEDING,PROSTATE CANCER WITH RADIATION History of Any Multi-Drug Resistant Organisms: None Reported Past Surgical History: Tonsillectomy Additional Past Surgical History / Comment(s): RIGHT AND LEFT GREAT TOE ( CLEAN OUT JOINTS) , PROSTATE SURGERY, RIGHT AND LEFT ARTHROSCOPIC KNEE Past Anesthesia/Blood Transfusion Reactions: Previous Problems w/ Anesthesia Additional Past Anesthesia/Blood Transfusion Reaction / Comment(s): PATIENT STATES WOKE UP DURING HIS TOE SURGERY " Past Psychological History: No Psychological Hx Reported Smoking Status: Former smoker Past Alcohol Use History: Rare Additional Past Alcohol Use History / Comment(s): STARTED AGE 10 QUIT AGE 46 SMO KED 1PPD MOST OF THE TIME Past Drug Use History: None Reported - Past Family History Father Family Medical History: Cancer Additional Family Medical History / Comment(s): LUNG AND BRAIN CANCER Medications and Allergies Home Medications Medication Instructions Recorded Confirmed Type Aspirin 162 mg PO DAILY 07/10/16 01/23/21 History Doxazosin [Cardura] 2 mg PO HS 07/10/16 01/23/21 History Glimepiride [Amaryl] 4 mg PO DAILY 07/10/16 01/23/21 History Lisinopril-Hctz 20-25 mg 1 tab PO DAILY 07/10/16 01/23/21 History [Zestoretic 20-25] Naproxen [Naprosyn] 500 mg PO BID 07/10/16 01/23/21 History Red Yeast Rice 1,200 mg PO HS 07/10/16 01/23/21 History metFORMIN HCL [Metformin HCl] 1,000 mg PO BID 07/10/16 01/23/21 History Loratadine 10 mg PO DAILY 06/20/18 01/23/21 History Multivitamin-No Iron 1 tab PO DAILY 01/21/21 01/23/21 History Pioglitazone [Actos] 45 mg PO DAILY 01/21/21 01/23/21 History Verapamil HCl [Verapamil Sr] 360 mg PO DAILY 01/21/21 01/23/21 History Ascorbic Acid [Vitamin C] 1,000 mg PO DAILY 01/23/21 01/23/21 History Cholecalciferol [Vitamin D3 (25 50 mcg PO DAILY 01/23/21 01/23/21 History Mcg = 1000 Iu)] Zinc Gluconate [Zinc] 50 mg PO DAILY 01/23/21 01/23/21 History Allergies Allergy/AdvReac Type Severity Reaction Status Date / Time No Known Allergies Allergy Verified 01/23/21 16:21 Physical Exam Osteopathic Statement: *. No significant issues noted on an osteopathic structural exam other than those noted in the History and Physical/Consult. Vitals: Vital Signs Temp Pulse Pulse Pulse Resp BP BP 01/24/21 14:08 20 01/24/21 13:33 73 20 01/24/21 12:47 01/24/21 12:00 99.2 F 73 20 146/60 01/24/21 08:00 98.1 F 78 20 158/69 01/24/21 04:00 99.3 F 74 22 153/74 01/24/21 01:00 01/23/21 22:45 70 24 01/23/21 22:43 99.1 F 70 22 149/61 01/23/21 21:13 64 22 134/62 01/23/21 19:47 01/23/21 19:00 66 20 126/65 01/23/21 15:00 58 L 18 146/65 Pulse Ox 01/24/21 14:08 88 L 01/24/21 13:33 01/24/21 12:47 89 L 01/24/21 12:00 84 L 01/24/21 08:00 89 L 01/24/21 04:00 91 L 01/24/21 01:00 88 L 01/23/21 22:45 01/23/21 22:43 81 L 01/23/21 21:13 93 L 01/23/21 19:47 91 L 01/23/21 19:00 90 L 01/23/21 15:00 95 Intake and Output 01/23/21 01/24/21 01/24/21 22:59 06:59 14:59 Intake Total 280 Output Total 100 400 Balance -100 -120 Intake: Oral 280 Output: Urine 100 Urine/Stool Mix 400 Other: Voiding Method Urinal # Voids 1 1 # Bowel Movements 1 Weight 136.078 kg Patient sitting at the bedside, wearing both a nonrebreather mask and 15 L high flow nasal cannula, having mild conversational dyspnea. HEENT examination is grossly unremarkable. Neck supple. Full range of motion. No adenopathy thyromegaly or neck vein distention. Cardiovascular examination reveals regular rhythm rate. S1-S2 normal. No S3 or S4. No discernible murmur noted. Heart sounds are distant. Heart rate 73 bpm. Lungs reveal coarse bilateral rhonchi. Breath sounds equal bilaterally. Satur ations are in the high 80s. The patient clinically looks reasonably well. Abdomen obese, but soft. Bowel sounds are noted. Extremities are intact. No cyanosis clubbing or edema. Skin is without rash or lesion. Neurologic examination is brief but nonfocal. Results - Laboratory Findings CBC and BMP: 01/24/21 06:00 01/24/21 06:00 PT/INR, D-dimer PT 10.5 sec (9.0-12.0) 01/24/21 13:17 INR 1.0 (<1.2) 01/24/21 13:17 D-Dimer 0.80 mg/L FEU (<0.60) H 01/23/21 13:35 Abnormal lab findings: Abnormal Labs 01/23/21 01/23/21 01/23/21 13:35 13:35 13:35 RBC 4.09 L Hgb 12.9 L Hct 37.1 L Plt Count 149 L Lymphocytes # 0.5 L APTT D-Dimer 0.80 H Potassium 3.1 L BUN 22 H Creatinine Glucose 213 H POC Glucose (mg/dL) Plasma Lactic Acid Liban Calcium 8.3 L Magnesium 1.5 L Creatine Kinase 182 H Total Creatine Kinase Total Protein 6.0 L Albumin 3.4 L SARS-CoV-2 (PCR) 01/23/21 01/23/21 01/23/21 13:35 13:35 13:35 RBC Hgb Hct Plt Count Lymphocytes # APTT D-Dimer Potassium BUN Creatinine Glucose POC Glucose (mg/dL) Plasma Lactic Acid Liban 3.6 H* Calcium Magnesium Creatine Kinase Total Creatine Kinase 182 H Total Protein Albumin SARS-CoV-2 (PCR) Detected A 01/23/21 01/24/21 01/24/21 21:02 06:00 06:00 RBC Hgb Hct Plt Count Lymphocytes # 0.5 L APTT D-Dimer Potassium BUN Creatinine 0.60 L Glucose 226 H POC Glucose (mg/dL) 255 H Plasma Lactic Acid Liban Calcium 8.2 L Magnesium Creatine Kinase Total Creatine Kinase Total Protein Albumin SARS-CoV-2 (PCR) 01/24/21 01/24/21 01/24/21 06:06 11:41 13:17 RBC Hgb Hct Plt Count Lymphocytes # APTT 32.2 H D-Dimer Potassium BUN Creatinine Glucose POC Glucose (mg/dL) 222 H 247 H Plasma Lactic Acid Liban Calcium Magnesium Creatine Kinase Total Creatine Kinase Total Protein Albumin SARS-CoV-2 (PCR) - Diagnostic Findings Chest x-ray: image reviewed CT scan - chest: image reviewed Assessment and Plan Assessment: Acute hypoxemic respiratory failure secondary to coronavirus associated pneumonia. No evidence of pulmonary embolism on CT angiogram. History of diabetes mellitus. History of hypertension. History of prostate cancer. History of hyperlipidemia. Morbid obesity. Plan: Plan dated 01/24/2021. The patient has been started on ERROL. In addition, the patient is on vitamin C, vitamin D3, and zinc. The patient is also on Decadron, and Lovenox. Additional recommendations and suggestions are forthcoming. His saturations on the nonrebreather mask/15 L high flow nasal cannula, are in the high 80s. The patient may deteriorate further. We'll continue to follow him closely and make recommendations where appropriate. Prognosis is guarded. Unfortunately, this patient is on vaccinated. Time with Patient: Greater than 30
[2021-01-24 16:48] LABS: Glucose,Whole Blood 286 mg/dL (75-99)
[2021-01-24 20:17] LABS: Glucose,Whole Blood 226 mg/dL (75-99)
[2021-01-24] MEDS: DOXAZOSIN 2 MG TAB PO SCH (20:48)
--- NOTE | 2021-01-24 22:55 | P.CONS ---
History of Present Illness - Reason for Consult Consult date: 01/24/21 covid 19 pneumonia Requesting physician: Zi Melo - Chief Complaint shortness of breath x 4 days - History of Present Illness History of present illness : Patient is 70-year male presenting to the ER yesterday afternoon for evaluation of cough shortness of breath and this patient symptom has been going on for about 4 days before presentation to the hospital patient was diagnosed with a COVID-19 3 days ago and has been given monoclonal antibody infusion however yesterday the patient had noticed to have hypoxemia and having increasing shortness of breath on minimal exertion and even at rest patient also have a cough which is moderate intensity with some bloodstained sputum no pleuritic chest pain patient denies any nausea no vomiting no abdominal pain did have some diarrhea recently improve also noted to have low O2 sats with the center the patient presented to hospital on arrival to be admitted have low-grade fever of 99.4 F patient was hypoxic with O2 sats of 85% on room air and is requiring high flow oxygen patient did have a normal white count with lymphopenia creatinine 0.60 meyers PCR was positive influenza and RSV was negative blood cultures were initially currently pending the patient did have a chest x-ray finding consistent with a possible Covid pneumonia patient did have a CT angiogram of the chest no definite pulmonary bolus of bilateral groundglass Covid pneumonia with some right hilar lymphadenopathy patient has been admitted to hospital infectious was consulted for further management Review of system: CONSTITUTIONAL: Positive for weakness along with the fever. EYES: No complaint. ENT: No complaint. RESPIRATORY as per history of present illness. CARDIOVASCULAR: No complaint. GENITOURINARY: No complaint. GASTROINTESTINAL: As per history of present illness. MUSCULOSKELETAL: No complaint. INTEGUMENTARY: No complaint. PSYCHOLOGIC: No complaint. ENDOCRINE: No complaint. NEUROLOGIC: No complaint. Past medical history : Reviewed, documented below Past surgical history : Reviewed, documented below Social history: Reviewed, documented below Medications: Reviewed, as documented below EXAMINATION: Vital sigans= Reviewed and documented below GENERAL DESCRIPTION: Elderly male up in bed, no distress. No tachypnea or accessory muscle of respiration use. HEENT: Shows Pallor , no scleral icterus. Oral mucous membrane is dry. NECK: Trachea central, no thyromegaly. LUNGS: Unlabored breathing. Coarse breath sounds bilaterally. No wheeze or crackle. HEART: S1, S2, regular rate and rhythm. ABDOMEN: Soft, no tenderness , guarding or rigidity EXTREMITIES: No edema of feet. SKIN: No rash, no masses palpable. NEUROLOGICAL: The patient is awake, alert, oriented x3, mood and affect normal. LABS AND RADIOLOGY: Reviewed results see below Assessment : Patient presented to hospital with acute respiratory failure secondary to COVID-19 pneumonia in this patient with significant hypoxemia requiring high flow oxygen and a nonrebreather in view of the amount of oxygen the patient intubated and his sats patient will be ideally treated for barcitinab then remdesivir at this point as evidence of any secondary bacterial pneumonia Plan: 1-Baricitinab has been ordered per protocol by pulmonary 2-dexamethasone Lovenox zinc and ascorbic acid 3-droplet isolation and respiratory support We will follow on clinical condition and cultures to further adjust medication if needed Thank you for this consultation we will follow the patient along with you Past Medical History Past Medical History: Cancer, Diabetes Mellitus, Hyperlipidemia, Hypertension, Osteoarthritis (OA), Prostate Disorder Additional Past Medical History / Comment(s): SOME RECTAL BLEEDING,PROSTATE CANCER WITH RADIATION History of Any Multi-Drug Resistant Organisms: None Reported Past Surgical History: Tonsillectomy Additional Past Surgical History / Comment(s): RIGHT AND LEFT GREAT TOE ( CLEAN OUT JOINTS) , PROSTATE SURGERY, RIGHT AND LEFT ARTHROSCOPIC KNEE Past Anesthesia/Blood Transfusion Reactions: Previous Problems w/ Anesthesia Additional Past Anesthesia/Blood Transfusion Reaction / Comm: PATIENT STATES WOKE UP DURING HIS TOE SURGERY " Past Psychological History: No Psychological Hx Reported Smoking Status: Former smoker Past Alcohol Use History: Rare Additional Past Alcohol Use History / Comment(s): STARTED AGE 10 QUIT AGE 46 SMOKED 1PPD MOST OF THE TIME Past Drug Use History: None Reported - Past Family History Father Family Medical History: Cancer Additional Family Medical History / Comment(s): LUNG AND BRAIN CANCER Medications and Allergies Home Medications Medication Instructions Recorded Confirmed Type Aspirin 162 mg PO DAILY 07/10/16 01/23/21 History Doxazosin [Cardura] 2 mg PO HS 07/10/16 01/23/21 History Glimepiride [Amaryl] 4 mg PO DAILY 07/10/16 01/23/21 History Lisinopril-Hctz 20-25 mg 1 tab PO DAILY 07/10/16 01/23/21 History [Zestoretic 20-25] Naproxen [Naprosyn] 500 mg PO BID 07/10/16 01/23/21 History Red Yeast Rice 1,200 mg PO HS 07/10/16 01/23/21 History metFORMIN HCL [Metformin HCl] 1,000 mg PO BID 07/10/16 01/23/21 History Loratadine 10 mg PO DAILY 06/20/18 01/23/21 History Multivitamin-No Iron 1 tab PO DAILY 01/21/21 01/23/21 History Pioglitazone [Actos] 45 mg PO DAILY 01/21/21 01/23/21 History Verapamil HCl [Verapamil Sr] 360 mg PO DAILY 01/21/21 01/23/21 History Ascorbic Acid [Vitamin C] 1,000 mg PO DAILY 01/23/21 01/23/21 History Cholecalciferol [Vitamin D3 (25 50 mcg PO DAILY 01/23/21 01/23/21 History Mcg = 1000 Iu)] Zinc Gluconate [Zinc] 50 mg PO DAILY 01/23/21 01/23/21 History Allergies Allergy/AdvReac Type Severity Reaction Status Date / Time No Known Allergies Allergy Verified 01/23/21 16:21 Physical Exam Vitals: Vital Signs Temp Pulse Pulse Pulse Resp BP BP 01/24/21 08:00 98.1 F 78 20 158/69 01/24/21 04:00 99.3 F 74 22 153/74 01/24/21 01:00 01/23/21 22:45 70 24 01/23/21 22:43 99.1 F 70 22 149/61 01/23/21 21:13 64 22 134/62 01/23/21 19:47 01/23/21 19:00 66 20 126/65 01/23/21 15:00 58 L 18 146/65 01/23/21 14:05 01/23/21 13:57 58 L 18 137/71 01/23/21 13:35 28 H 01/23/21 13:02 99.4 F 70 18 147/69 Pulse Ox 01/24/21 08:00 89 L 01/24/21 04:00 91 L 01/24/21 01:00 88 L 01/23/21 22:45 01/23/21 22:43 81 L 01/23/21 21:13 93 L 01/23/21 19:47 91 L 01/23/21 19:00 90 L 01/23/21 15:00 95 01/23/21 14:05 97 01/23/21 13:57 98 01/23/21 13:35 01/23/21 13:02 85 L Intake and Output 01/23/21 01/24/21 01/24/21 22:59 06:59 14:59 Intake Total 180 Output Total 100 400 Balance -100 -220 Intake: Oral 180 Output: Urine 100 Urine/Stool Mix 400 Other: Voiding Method Urinal # Voids 1 1 # Bowel Movements 1 Weight 136.078 kg Results CBC & Chem 7: 01/24/21 06:00 01/24/21 06:00 Labs: Abnormal Lab Results - Last 24 Hours (Table) 01/23/21 01/23/21 01/23/21 Range/Units 13:35 13:35 13:35 RBC 4.09 L (4.30-5.90) m/uL Hgb 12.9 L (13.0-17.5) gm/dL Hct 37.1 L (39.0-53.0) % Plt Count 149 L (150-450) k/uL Lymphocytes # 0.5 L (1.0-4.8) k/uL D-Dimer 0.80 H (<0.60) mg/L FEU Potassium 3.1 L (3.5-5.1) mmol/L BUN 22 H (9-20) mg/dL Creatinine (0.66-1.25) mg/dL Glucose 213 H (74-99) mg/dL POC Glucose (mg/dL) (75-99) mg/dL Plasma Lactic Acid Liban (0.7-2.0) mmol/L Calcium 8.3 L (8.4-10.2) mg/dL Magnesium 1.5 L (1.6-2.3) mg/dL Creatine Kinase 182 H (55-170) U/L Total Creatine Kinase (55-170) U/L Total Protein 6.0 L (6.3-8.2) g/dL Albumin 3.4 L (3.5-5.0) g/dL SARS-CoV-2 (PCR) (Not Detectd) 01/23/21 01/23/21 01/23/21 Range/Units 13:35 13:35 13:35 RBC (4.30-5.90) m/uL Hgb (13.0-17.5) gm/dL Hct (39.0-53.0) % Plt Count (150-450) k/uL Lymphocytes # (1.0-4.8) k/uL D-Dimer (<0.60) mg/L FEU Potassium (3.5-5.1) mmol/L BUN (9-20) mg/dL Creatinine (0.66-1.25) mg/dL Glucose (74-99) mg/dL POC Glucose (mg/dL) (75-99) mg/dL Plasma Lactic Acid Liban 3.6 H* (0.7-2.0) mmol/L Calcium (8.4-10.2) mg/dL Magnesium (1.6-2.3) mg/dL Creatine Kinase (55-170) U/L Total Creatine Kinase 182 H (55-170) U/L Total Protein (6.3-8.2) g/dL Albumin (3.5-5.0) g/dL SARS-CoV-2 (PCR) Detected A (Not Detectd) 01/23/21 01/24/21 01/24/21 Range/Units 21:02 06:00 06:00 RBC (4.30-5.90) m/uL Hgb (13.0-17.5) gm/dL Hct (39.0-53.0) % Plt Count (150-450) k/uL Lymphocytes # 0.5 L (1.0-4.8) k/uL D-Dimer (<0.60) mg/L FEU Potassium (3.5-5.1) mmol/L BUN (9-20) mg/dL Creatinine 0.60 L (0.66-1.25) mg/dL Glucose 226 H (74-99) mg/dL POC Glucose (mg/dL) 255 H (75-99) mg/dL Plasma Lactic Acid Liban (0.7-2.0) mmol/L Calcium 8.2 L (8.4-10.2) mg/dL Magnesium (1.6-2.3) mg/dL Creatine Kinase (55-170) U/L Total Creatine Kinase (55-170) U/L Total Protein (6.3-8.2) g/dL Albumin (3.5-5.0) g/dL SARS-CoV-2 (PCR) (Not Detectd) 01/24/21 Range/Units 06:06 RBC (4.30-5.90) m/uL Hgb (13.0-17.5) gm/dL Hct (39.0-53.0) % Plt Count (150-450) k/uL Lymphocytes # (1.0-4.8) k/uL D-Dimer (<0.60) mg/L FEU Potassium (3.5-5.1) mmol/L BUN (9-20) mg/dL Creatinine (0.66-1.25) mg/dL Glucose (74-99) mg/dL POC Glucose (mg/dL) 222 H (75-99) mg/dL Plasma Lactic Acid Liban (0.7-2.0) mmol/L Calcium (8.4-10.2) mg/dL Magnesium (1.6-2.3) mg/dL Creatine Kinase (55-170) U/L Total Creatine Kinase (55-170) U/L Total Protein (6.3-8.2) g/dL Albumin (3.5-5.0) g/dL SARS-CoV-2 (PCR) (Not Detectd)
[2021-01-25 00:08] VITALS: RESP 20
--- NOTE | 2021-01-25 01:01 | P.PN ---
Subjective Progress Note Date: 01/24/21 This is a 70-year-old male who was recently admitted with shortness of breath and recently diagnosed with Covid 19. Pulmonary and infectious disease following. Patient states he received the monoclonal antibody and was sent home. Patient respiratory status continue to worsen and became extremely hypoxic and was admitted. Patient currently on 15L HF along with 15 L non-rebreather and oxygen saturations are in the 80's. Patient is being switched to airvo and continues with 15 L Non-rebreather. Patient continues on dexamethasone along with lovenox, vitamins c,d and zinc and will continue. Patient being started on Baricitinib. Patient also reports to coughing frequently and spitting up sputum and phlegm that is blood tinged and will monitor closely. Hemoglobin is stable at 13.5. Labs: WBC is 5.2, hemoglobin is 13.5, platelets are 153, INR is 1.0, APTT is 32.2, sodium is 138, potassium is 3.8, BUN is 18, creatinine 0.6, calcium is 8.2, magnesium is 1.8 Review of systems: Constitutional: No reports of fatigue, fever, or chills Cardiovascular: No reports of chest pain or palpitations Respiratory: reports of worsening shortness of breath and continued cough with some blood noted in the sputum GI: No reports of nausea, vomiting, or diarrhea : No reports of dysuria or retention Neurovascular: No reports of weakness or numbness All medications have been reviewed Active Medications Acetaminophen (Acetaminophen Tab 325 Mg Tab) 650 mg PO Q6HR PRN PRN Reason: Mild Pain or Fever > 100.5 Albuterol Sulfate (Albuterol Hfa Inhaler) 2 puff INHALATION RT-QID [facility] Last Admin: 01/24/21 11:54 Dose: 2 puff Documented by: Ascorbic Acid (Ascorbic Acid 500 Mg Tab) 500 mg PO DAILY [facility] Last Admin: 01/24/21 08:49 Dose: 500 mg Documented by: Baricitinib (Baricitinib 2 Mg Tablet) 4 mg PO DAILY@1400 [facility] Stop: 02/06/21 14:01 Last Admin: 01/24/21 12:21 Dose: 4 mg Documented by: Cholecalciferol (Cholecalciferol 25 Mcg (1000 Iu) Tablet) 25 mcg PO DAILY [facility] Last Admin: 01/24/21 08:49 Dose: 25 mcg Documented by: Dexamethasone (Dexamethasone 2 Mg Tab) 6 mg PO DAILY [facility] Stop: 02/02/21 17:01 Last Admin: 01/24/21 08:48 Dose: 6 mg Documented by: Doxazosin Mesylate (Doxazosin 2 Mg Tab) 2 mg PO [facility] Last Admin: 01/23/21 20:26 Dose: 2 mg Documented by: Enoxaparin Sodium (Enoxaparin 40 Mg/0.4 Ml Syringe) 40 mg SQ Q24HR [facility] Last Admin: 01/24/21 08:49 Dose: 40 mg Documented by: Glimepiride (Glimepiride 4 Mg Tab) 4 mg PO -[facility] Last Admin: 01/24/21 06:47 Dose: 4 mg Documented by: Lisinopril/HCTZ (Lisinopril-Hctz 20-25 Mg 1 Each Tab) 1 each PO DAILY [facility] Last Admin: 01/24/21 08:49 Dose: 1 each Documented by: Insulin Aspart (Insulin Aspart (Novolog) 100 Unit/Ml Vial) 0 unit SQ [facility]; Protocol Last Admin: 01/24/21 12:20 Dose: 5 unit Documented by: Loratadine (Loratadine 10 Mg Tab) 10 mg PO DAILY [facility] Last Admin: 01/24/21 08:49 Dose: 10 mg Documented by: Miscellaneous Information (Magnesium Replacement Protocol 1 Each Misc) 1 each MISCELLANE DAILY PRN; Protocol PRN Reason: Per Protocol Miscellaneous Information (Potassium Replacement Protocol 1 Each Misc) 1 each MISCELLANE DAILY PRN; Protocol PRN Reason: Per Protocol Multivitamins (Multivitamins, Thera 1 Each Tab) 1 each PO DAILY@1200 [facility] Last Admin: 01/24/21 12:21 Dose: 1 each Documented by: Naloxone HCl (Naloxone 0.4 Mg/Ml 1 Ml Vial) 0.2 mg IV Q2M PRN PRN Reason: Opioid Reversal Pantoprazole Sodium (Pantoprazole 40 Mg Tablet) 40 mg PO -[facility] Last Admin: 01/24/21 06:47 Dose: 40 mg Documented by: Pioglitazone HCl (Pioglitazone 45 Mg Tab) 45 mg PO DAILY [facility] Last Admin: 01/24/21 08:49 Dose: 45 mg Documented by: Verapamil HCl (Verapamil Sr 180 Mg Tablet.Er) 360 mg PO DAILY [facility] Last Admin: 01/24/21 08:49 Dose: 360 mg Documented by: Zinc Sulfate (Zinc Sulfate 220 Mg Cap) 220 mg PO DAILY [facility] Last Admin: 01/24/21 08:49 Dose: 220 mg Documented by: Physical exam: Gen: This is a 70-year-old male awake, alert and oriented x3. Temp is 98.1 F, pulse is 78, respirations are 20, blood pressure 158/69, oxygen saturation is 89% on 15 L high flow nasal cannula along with 15 L nonrebreather and currently being placed on Airvo HEENT: Head is atraumatic, normocephalic. Pupils equal, round. Sclerae is anicte love. NECK: Supple. No JVD. No lymphadenopathy. No thyromegaly. LUNGS: diminished breath sounds bilaterally with continued dry hacking cough on exam. some scattered coarse rhonchi noted. No intercostal retractions. HEART:S1, S2 muffled. ABDOMEN: Soft. obese Bowel sounds are present. No masses. No tenderness. EXTREMITIES: No pedal edema. No calf tenderness. NEUROLOGICAL: Patient is awake, alert and oriented x3. Cranial nerves 2 through 12 are grossly intact. Assessment: Acute COVID-19 infection with acute COVID-19 bilateral interstitial pneumonia with acute hypoxic respiratory failure, on high flow oxygen Elevated d-dimer, ruled out acute pulmonary embolism Right hilar adenopathy, possibly reactive Hypokalemia, severe elevated lactic acid, possibly secondary to dehydration and COVID-19 pneumonia Hypomagnesemia Elevated creatinine kinase with possible acute mild rhabdomyolysis Anemia Mild thrombocytopenia Lymphopenia morbid obesity with a body mass index of 40.7 Diabetes mellitus type 2 Hypertension Hyperlipidemia history of degenerative joint disease history of prostate disorder history of rectal bleeding history of prostate cancer with radiation remote history of nicotine dependence Full code Plan: Recommend to continue current medications and management. Pulmonary and infectious disease consulted and following. Patient currently maintained on 15 L high flow and non rebreather and oxygen is 89% and being placed on Airvo and continues to use 15 Non-rebreather as well. Some blood noted in the sputum and will monitor closely. Hemoglobin is stable and will repeat am labs. Patient being started on Baricitinib and continues on covid vitamins, oral dexamethasone, and lovenox. Patient was on daily oral protonix and will transition to IV and BID. Encouraged incentive spirometer use and increase activity as tolerated. Due to multiple complex medical issues, prognosis is guarded. Objective - Vital Signs Vital signs: Vital Signs Temp 98.1 F 01/24/21 08:00 Pulse 78 01/24/21 08:00 Resp 20 01/24/21 08:00 BP 158/69 01/24/21 08:00 Pulse Ox 89 L 01/24/21 08:00 Intake & Output 01/23/21 01/24/21 01/24/21 18:59 06:59 18:59 Intake Total 180 Output Total 100 Balance -100 180 Weight 136.078 kg 136.078 kg Intake: Oral 180 Output: Urine 100 Other: Voiding Method Urinal # Voids 1 - Labs CBC & Chem 7: 01/24/21 06:00 01/24/21 06:00 Labs: Abnormal Lab Results - Last 24 Hours (Table) 01/23/21 01/23/21 01/23/21 Range/Units 13:35 13:35 13:35 RBC 4.09 L (4.30-5.90) m/uL Hgb 12.9 L (13.0-17.5) gm/dL Hct 37.1 L (39.0-53.0) % Plt Count 149 L (150-450) k/uL Lymphocytes # 0.5 L (1.0-4.8) k/uL D-Dimer 0.80 H (<0.60) mg/L FEU Potassium 3.1 L (3.5-5.1) mmol/L BUN 22 H (9-20) mg/dL Creatinine (0.66-1.25) mg/dL Glucose 213 H (74-99) mg/dL POC Glucose (mg/dL) (75-99) mg/dL Plasma Lactic Acid Liban (0.7-2.0) mmol/L Calcium 8.3 L (8.4-10.2) mg/dL Magnesium 1.5 L (1.6-2.3) mg/dL Creatine Kinase 182 H (55-170) U/L Total Creatine Kinase (55-170) U/L Total Protein 6.0 L (6.3-8.2) g/dL Albumin 3.4 L (3.5-5.0) g/dL SARS-CoV-2 (PCR) (Not Detectd) 12/01/23/21 01/23/21 Range/Units 13:35 13:35 13:35 RBC (4.30-5.90) m/uL Hgb (13.0-17.5) gm/dL Hct (39.0-53.0) % Plt Count (150-450) k/uL Lymphocytes # (1.0-4.8) k/uL D-Dimer (<0.60) mg/L FEU Potassium (3.5-5.1) mmol/L BUN (9-20) mg/dL Creatinine (0.66-1.25) mg/dL Glucose (74-99) mg/dL POC Glucose (mg/dL) (75-99) mg/dL Plasma Lactic Acid Liban 3.6 H* (0.7-2.0) mmol/L Calcium (8.4-10.2) mg/dL Magnesium (1.6-2.3) mg/dL Creatine Kinase (55-170) U/L Total Creatine Kinase 182 H (55-170) U/L Total Protein (6.3-8.2) g/dL Albumin (3.5-5.0) g/dL SARS-CoV-2 (PCR) Detected A (Not Detectd) 01/23/21 01/24/21 01/24/21 Range/Units 21:02 06:00 06:00 RBC (4.30-5.90) m/uL Hgb (13.0-17.5) gm/dL Hct (39.0-53.0) % Plt Count (150-450) k/uL Lymphocytes # 0.5 L (1.0-4.8) k/uL D-Dimer (<0.60) mg/L FEU Potassium (3.5-5.1) mmol/L BUN (9-20) mg/dL Creatinine 0.60 L (0.66-1.25) mg/dL Glucose 226 H (74-99) mg/dL POC Glucose (mg/dL) 255 H (75-99) mg/dL Plasma Lactic Acid Liban (0.7-2.0) mmol/L Calcium 8.2 L (8.4-10.2) mg/dL Magnesium (1.6-2.3) mg/dL Creatine Kinase (55-170) U/L Total Creatine Kinase (55-170) U/L Total Protein (6.3-8.2) g/dL Albumin (3.5-5.0) g/dL SARS-CoV-2 (PCR) (Not Detectd) 01/24/21 Range/Units 06:06 RBC (4.30-5.90) m/uL Hgb (13.0-17.5) gm/dL Hct (39.0-53.0) % Plt Count (150-450) k/uL Lymphocytes # (1.0-4.8) k/uL D-Dimer (<0.60) mg/L FEU Potassium (3.5-5.1) mmol/L BUN (9-20) mg/dL Creatinine (0.66-1.25) mg/dL Glucose (74-99) mg/dL POC Glucose (mg/dL) 222 H (75-99) mg/dL Plasma Lactic Acid Liban (0.7-2.0) mmol/L Calcium (8.4-10.2) mg/dL Magnesium (1.6-2.3) mg/dL Creatine Kinase (55-170) U/L Total Creatine Kinase (55-170) U/L Total Protein (6.3-8.2) g/dL Albumin (3.5-5.0) g/dL SARS-CoV-2 (PCR) (Not Detectd)
[2021-01-25 05:37] VITALS: TEMP 98.2
[2021-01-25 05:59] LABS: Glucose,Whole Blood 199 mg/dL (75-99)
[2021-01-25 06:35] LABS: Basophils % (A) 0 %; Eosinophils % (A) 0 %; HCT 38.7 % (39.0-53.0); HGB 13.3 gm/dL (13.0-17.5); Lymphocytes # (A) 0.5 k/uL (1.0-4.8); Lymphocytes % (A) 7 %; MCH 31.3 pg (25.0-35.0); MCHC 34.3 g/dL (31.0-37.0); MCV 91.3 fL (80.0-100.0); Mean Platelet Volume 7.8; Monocytes # (A) 0.6 k/uL (0-1.0); Monocytes % (A) 8 %; Neutrophils % (A) 83 %; Platelet Count 205 k/uL (150-450); RBC 4.24 m/uL (4.30-5.90); RDW 12.2 % (11.5-15.5); WBC 7.2 k/uL (3.8-10.6)
[2021-01-25 06:42] LABS: ALT 24 U/L (4-49); AST 68 U/L (17-59); African American GFR (CKD) >90 (>60 ml/min/1.73 sqM); Albumin 3.4 g/dL (3.5-5.0); Alkaline Phosphatase 63 U/L (38-126); Anion Gap 9 mmol/L; Blood Urea Nitrogen 25 mg/dL (9-20); Calcium 8.4 mg/dL (8.4-10.2); Carbon Dioxide 32 mmol/L (22-30); Chloride 98 mmol/L (98-107); Glucose 206 mg/dL (74-99); Non-African American GFR(CKD) >90 (>60 ml/min/1.73 sqM); Potassium 3.9 mmol/L (3.5-5.1); Sodium 139 mmol/L (137-145); Total Bilirubin 0.6 mg/dL (0.2-1.3); Total Protein 6.3 g/dL (6.3-8.2)
[2021-01-25 06:45] LABS: Glucose,Whole Blood 231 mg/dL (75-99)
[2021-01-25] MEDS ORDERED: SODIUM BICARB 8.4% 50 ML SYR (1 MEQ/ML) ONE (06:45)
[2021-01-25] MEDS ORDERED: ATROPINE SULFATE 0.1 MG/ML 10ML SYRINGE ONE (06:45)
[2021-01-25] MEDS ORDERED: EPINEPHrine 10 ML SYRINGE (0.1 MG/ML) ONE (06:45)
[2021-01-25 06:52] LABS: C Reactive Protein 7.1 mg/dL (<1.0)
[2021-01-25] MEDS ORDERED: propofoL 100 ML IV ONE (06:56)
[2021-01-25] MEDS ORDERED: NOREPINEPHRIN 4 MG-0.9% NS PMX 4 MG/250 ML ML IV ONE (06:58)
--- NOTE | 2021-01-25 07:39 | XR ---
EXAMINATION TYPE: XR chest 1V portable DATE OF EXAM: 01/25/2021 COMPARISON: 01/23/2021 HISTORY: Tube placement TECHNIQUE: Single frontal view of the chest is obtained. FINDINGS: ET tube is within the proximal right mainstem bronchus. Report called patient's nurse. The re is diffuse bilateral airspace disease with small effusion. Heart size stable. No pneumothorax. Art hropathy of the right shoulder. IMPRESSION: 1. ET tube in the proximal right mainstem bronchus. 2. Correlate for ARDS or diffuse pneumonia.
--- NOTE | 2021-01-25 07:40 | P.EN ---
Code Blue Note Activated at 6:47 am. Arrived on the scene shortly after. Reviewed the chart and discussed the case with RN. 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 When the nurse checked on him, the patient was off his oxygen appearing cyanotic, laying on the ground in the bathroom. ACLS protocol was immediately initiated and the patient was started on high quality CPR. He was noted to be in asystole at CPR initiation. Epinephrine IV push bolus x 5 and sodium bicarbonate x 2 were administered throughout the code. ROSC was achieved twice with subsequent asystole. The patient was also given Atropine IVP x 1 for sinus bradycardia and was initiated on Levophed initiation. The family was notified who noted to proceed with all life-saving measures. The patient was intubated and was moved to the MICU following ROSC with sinus rhythm. No shocks were delivered. The orthotic/prosthetic clinician and primary teams were notified. Total time spent providing critical care to this patient: 40 minutes.
--- NOTE | 2021-01-25 07:45 | P.EN ---
CODE BLUE Indication: PEA arrest Arrived on Scene to find: Patient had just had cardiac arrest X 2 wtih ROSC and was transferred to the ICU and on vent already maxed out on Levophed at 1 mcg/kg/min Initial Rhythm: PEA Code Course: PEA on the monitor, epi X 2, Bicarb X 1, no ROSC. Patient passed at 0733 and had recurrent cardaic arrest between 0645 and 0733. Total Down Time: 47 minutes Absent heart sounds, no pulse, Pupils fixed and dilated. Assessment: PEA arrest Disposition: Dr. Welch notifed by myself BRENNON Alarcon from admitting service. Family was on phone with nursing when he .
[2021-01-25] MEDS ORDERED: HYDROCORTISONE SUCCINATE 100 MG/2 ML VIAL IV SCH (08:00)
[2021-01-25] MEDS ORDERED: PANTOPRAZOLE 40 MG/10 ML VIAL IVP SCH (09:00)
[2021-01-25] MEDS: GLIMEPIRIDE 4 MG TAB PO SCH (09:07)
[2021-01-25 09:14] VITALS: BP 50/21; PULSE 27
--- NOTE | 2021-01-25 14:07 | P.EN ---
01/25/2021 Patient has . Family requesting autopsy. Recommend autopsy to be performed.
== END 2021-01-25 10:35 | disposition expired | DRG 177 ==
LOC: EC 12:51 → 3SCARD 16:08 → 2SICU 01-25 07:44
PROVIDERS: ADMIT Internal Medicine; ATTEND Internal Medicine
PROC: 5A0935A Assistance with Respiratory Ventilation, Less than 24 Consecutive Hours, High Flow/Velocity Cannula (ICD-10-PCS; 2021-01-23)
PROC: 3E033XZ Introduction of Vasopressor into Peripheral Vein, Percutaneous Approach (ICD-10-PCS; principal; 2021-01-25)
PROC: 0BH17EZ Insertion of Endotracheal Airway into Trachea, Via Natural or Artificial Opening (ICD-10-PCS; 2021-01-25)
PROC: 5A12012 Performance of Cardiac Output, Single, Manual (ICD-10-PCS; 2021-01-25)
DX: U07.1 COVID-19 (principal); J12.82 Pneumonia due to coronavirus disease 2019; J15.9 Unspecified bacterial pneumonia; J96.01 Acute respiratory failure with hypoxia; Z68.41 Body mass index [BMI] 40.0-44.9, adult; E87.2 Acidosis; M62.82 Rhabdomyolysis; D64.9 Anemia, unspecified; D69.6 Thrombocytopenia, unspecified; D72.810 Lymphocytopenia; E11.9 Type 2 diabetes mellitus without complications; E66.01 Morbid (severe) obesity due to excess calories; E78.5 Hyperlipidemia, unspecified; E83.42 Hypomagnesemia; E86.0 Dehydration; E87.6 Hypokalemia; I10 Essential (primary) hypertension; I46.9 Cardiac arrest, cause unspecified; Z79.82 Long term (current) use of aspirin; Z79.84 Long term (current) use of oral hypoglycemic drugs; Z80.8 Family history of malignant neoplasm of other organs or systems; Z85.46 Personal history of malignant neoplasm of prostate; Z87.891 Personal history of nicotine dependence; M19.90 Unspecified osteoarthritis, unspecified site
CPT/HCPCS: 36415; 71045; 71046; 71275; 80048; 80053; 82550; 82553; 83605; 83615; 83735; 84484; 85025; 85379; 85610; 85730; 86140; 87040; 87636; 92950; 93005; 94002; 94640; 94760; 96360; 99291